=== PATIENT | female | born 1950 | race Caucasian/White ===

== ENCOUNTER 2018-09-03 07:58 | Outpatient (CLI) | payer OTHER | END 2018-09-03 08:00 | disposition home or self-care (01) | LOC: SONOGRAMA 07:58 | DX: E04.1 Nontoxic single thyroid nodule (principal) ==

== ENCOUNTER 2019-11-28 12:24 | Outpatient (CLI) | payer OTHER | END 2019-11-28 12:44 | disposition home or self-care (01) | LOC: SONOGRAMA 12:24 | PROVIDERS: ATTEND Pathology Anatomic Pathology & Clinical Pathology | DX: E04.1 Nontoxic single thyroid nodule (principal) ==

== ENCOUNTER → 2020-02-05 | Outpatient (CLI) | payer OTHER | END | disposition home or self-care (01) | LOC: OFIC 805 11:19 | PROVIDERS: ATTEND Otolaryngology | DX: K21.9 Gastro-esophageal reflux disease without esophagitis (principal); J30.89 Other allergic rhinitis; R07.0 Pain in throat; R09.81 Nasal congestion ==

== ENCOUNTER 2020-02-29 13:10 | Inpatient (IN) | payer OTHER ==
[~2020-02-29] VITALS: Ht 167.6 cm; Wt 99.8 kg
[2020-03-02] MEDS ORDERED: LANTUS (09:58)
[2020-03-02] MEDS ORDERED: CYMBALTA60 MG PO (09:59)
[2020-03-02] MEDS ORDERED: SYNTHROID100 MCG PO (09:59)
[2020-03-02] MEDS ORDERED: LIRICA PO (10:00)
[2020-03-02] MEDS ORDERED: FENOFIBRA PO (10:00)
[2020-03-02] MEDS ORDERED: HUMUL (10:01)
[2020-03-02] MEDS ORDERED: PRILOSEC OTC20 MG PO (10:01)
[2020-03-02] MEDS ORDERED: LOSARTAN-HCTZ1 EACH PO (10:02)
[2020-03-02] MEDS ORDERED: TRIJARDY XR 251 EACH PO (10:02)
[2020-03-02] MEDS ORDERED: SUPER B-50 COM1 EACH PO (10:03)
[2020-03-02] MEDS ORDERED: OMEGA 3 1,0001 EACH PO (10:03)
[2020-03-02] MEDS ORDERED: LINZESS145 MCG PO ×2 (10:03→10:04)
[2020-03-09] MEDS ORDERED: LANTUS SOL100 UNIT/1 (08:10)
[2020-03-09] MEDS ORDERED: PREGABALIN200 MG (08:10)
[2020-03-09] MEDS ORDERED: FAMOTIDINE20 MG (08:11)
[2020-03-09] MEDS ORDERED: MONTELUKAST SOD10 MG (08:11)
[2020-03-09] MEDS ORDERED: DICLOFENAC SOD100 GM (08:11)
[2020-03-09] MEDS ORDERED: ESOMEPRAZOLE MA40 MG (08:11)
[2020-03-09] MEDS ORDERED: HUMALOG KW100 UNIT/1 (08:11)
[2020-03-09] MEDS ORDERED: FENOFIBRATE145 MG (08:11)
[2020-03-09] MEDS ORDERED: ATORVASTATIN CA20 MG (08:12)
[2020-03-10] MEDS ORDERED: ROCALTROL0.25 MCG PO (10:16)
== END 2020-03-10 10:16 | disposition home or self-care (01) | DRG 645 ==
LOC: SURH 03-08 08:30 → O/R 03-09 05:00 → SURH 03-09 05:00
PROVIDERS: ADMIT Surgery; ATTEND Surgery
DX: E04.1 Nontoxic single thyroid nodule (principal); D35.1 Benign neoplasm of parathyroid gland; E21.0 Primary hyperparathyroidism

== ENCOUNTER 2020-04-21 06:28 | Day surgery (SDC) | payer OTHER ==
[~2020-04-21 06:28] MED LIST: ATORVASTATIN CA20 MG; CYMBALTA60 MG PO; DICLOFENAC SOD100 GM; ESOMEPRAZOLE MA40 MG; FAMOTIDINE20 MG; FENOFIBRA PO; FENOFIBRATE145 MG; HUMALOG KW100 UNIT/1; HUMUL; LANTUS; LANTUS SOL100 UNIT/1; LINZESS145 MCG PO; LIRICA PO; LOSARTAN-HCTZ1 EACH PO; MONTELUKAST SOD10 MG; OMEGA 3 1,0001 EACH PO; PREGABALIN200 MG; PRILOSEC OTC20 MG PO; ROCALTROL0.25 MCG PO; SUPER B-50 COM1 EACH PO; SYNTHROID100 MCG PO; TRIJARDY XR 251 EACH PO
== END 2020-04-21 12:40 | disposition home or self-care (01) ==
LOC: AMB-ENDOS 06:28
PROVIDERS: ATTEND Surgery
DX: D12.2 Benign neoplasm of ascending colon (principal); Z20.822 Contact with and (suspected) exposure to COVID-19